=== PATIENT | male | born 1955 | race Caucasian/White ===

== ENCOUNTER 2023-04-06 09:11 | Emergency (ER) | payer OTHER, MEDICARE ==
[2023-04-06] MEDS ORDERED: SODIUM CHLORIDE 0.9% 500 ML INFUS.BAG IV ONE (09:40)
[2023-04-06] MEDS ORDERED: MECLIZINE HCL 25 MG TABLET (FP) PO ONE ×2 (09:40→11:58)
[2023-04-06 09:50] VITALS: BP 146/74; PULSE 65; RESP 18; TEMP 97.9; BMI 27.9
[2023-04-06 10:51] LABS: HEMATOCRIT 43.7 % (35.4-49); MCH 28.3 pg (25.7-33.7); MCHC 32.1 g/dl (32.0-35.9); MEAN CELL VOLUME 88.3 fl (80-96); MEAN PLT VOLUME 7.8 fl (7.5-11.1); PLATELET COUNT 273.2 10^3/uL (134-434); RBC 4.95 10^6/uL (4.00-5.60); RDW 14.5 % (11.9-15.9); WHITE BLOOD COUNT 8.8 10^3/uL (4.0-10.8)
[2023-04-06 10:52] LABS: ALBUMIN 4.3 g/dl (3.4-5.0); BILIRUBIN,TOTAL 0.5 mg/dl (0.2-1); BLOOD UREA NITROGEN 16.5 mg/dl (7-18); CALCIUM 8.9 mg/dl (8.5-10.1); CREATININE 0.7 mg/dl (0.6-1.3); POTASSIUM 4.4 mmol/L (3.5-5.1); SGOT/AST 21.5 U/L (15-37); SGPT/ALT 23.9 U/L (7-52); TOT PROT 6.3 g/dl (6.4-8.2)
[2023-04-06 11:17] LABS: PLATELET ESTIMATE ADEQUATE
[2023-04-06] MEDS ORDERED: MECLIZINE HCL 25 MG TABLET (FP) ONE (12:13)
== END 2023-04-06 13:21 | disposition home or self-care (01) ==
LOC: FER 09:11
DX: R42 Dizziness and giddiness (principal)
CPT/HCPCS: 36415; 70450-TC; 71046-TC-FY; 80053; 84484; 85027; 93005; 99285-25